=== PATIENT | female | born 1945 | race Caucasian/White ===

== ENCOUNTER 2017-01-26 15:54 | Emergency (ER) | payer OTHER ==
[~2017-01-26] VITALS: Ht 165.1 cm; Wt 68.0 kg
[~2017-01-26 15:54] MED LIST: ALPR0.25 PO; ESCI20TA PO; ONDA4TAB8 PO; PANT40TA2 PO; SOLI5TAB PO; TEMA15CA PO
--- NOTE | 2017-01-26 16:08 | NUR ---
Self present to ed due to right upper back pain x 5 days,08/07, non radiating. Patient denies injury. Ambulatory. vss. Pending md sullivan
[2017-01-26] MEDS ORDERED: KETOROLAC TROMETHAMINE 15 MG/ML VIAL ONE (16:26)
[2017-01-26] MEDS ORDERED: HYDROCODONE/APAP 5/325MG 1 EACH TABLET ONE (16:26)
[2017-01-26] MEDS ORDERED: HYDROCODONE/APAP 5/325MG 1 EACH TABLET PO ONE (16:30)
[2017-01-26] MEDS ORDERED: KETOROLAC TROMETHAMINE INJ 30 MG/ML VIAL IV ONE (16:30)
[2017-01-26 16:32] LABS: BASOPHILS % (AUTO) 0.2 % (0.0-2.0); EOSINOPHILS # (AUTO) 0.2 /CMM (0.0-0.7); HEMATOCRIT 34 % (33-45); HEMOGLOBIN 11.5 g/dL (11.5-14.8); LYMPHOCYTES # (AUTO) 1.7 /CMM (0.8-4.8); LYMPHOCYTES % (AUTO) 16.7 % (20.0-44.0); MEAN CORPUSCULAR HEMOGLOBIN 31 PG (26.0-33.0); MEAN CORPUSCULAR HGB CONC 34 g/dl (31.0-36.0); MEAN CORPUSCULAR VOLUME 91 fL (82-100); MONOCYTES # (AUTO) 0.5 /CMM (0.1-1.30); MONOCYTES % (AUTO) 5.4 % (2.0-12.0); NEUTROPHILS # (AUTO) 7.6 /CMM (1.8-8.9); NEUTROPHILS % (AUTO) 75.7 % (43.0-81.0); PLATELET COUNT (AUTO) 276 /CMM (150-450); RDW COEFFICIENT OF VARIATION 12.3 (11.5-15.0); RED BLOOD CELL COUNT(AUTO) 3.73 MIL/uL (4.0-5.2)
--- NOTE | 2017-01-26 16:39 | NUR ---
MEDICATED PATIENT FOR PAIN
[2017-01-26 16:42] LABS: CALCIUM, SERUM 9.3 mg/dL (8.5-10.1); CARBON DIOXIDE 28 mmol/L (21-32); CHLORIDE 104 mmol/L (98-107); CREATININE 1.7 mg/dL (0.6-1.3); GLUCOSE 141 mg/dL (74-106); POTASSIUM 3.4 mmol/L (3.5-5.1); SODIUM SERUM 141 mmol/L (136-145); UREA NITROGEN, BLOOD 40 mg/dL (7-18)
--- NOTE | 2017-01-26 16:42 | NUR ---
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
[2017-01-26 16:46] LABS: INR 0.92 (0.87-1.13); PROTHROMBIN TIME 9.6 SECS (9.5-12.7)
[2017-01-26 16:49] LABS: TROPONIN I < 0.017 ng/mL (0.00-0.056)
[2017-01-26] MEDS ORDERED: IV NS 0.9% 1,000 ML ONE (16:54)
[2017-01-26 16:55] LABS: B-TYPE NATRIURETIC PEPTIDE 440 PG/ML (0-125)
[2017-01-26] MEDS ORDERED: IV NS 0.9% 1,000 ML BAG IV ONE (17:00)
--- NOTE | 2017-01-26 19:07 | NUR ---
REPORT REC'D FROM UAGUST GREENBERG FOR DEVI.
--- NOTE | 2017-01-26 19:14 | NUR ---
Patient is resting comfortably in bed with eyes closed. Easily aroused. VSS
--- NOTE | 2017-01-26 19:25 | NUR ---
PT LEFT FOR VQ SCAN VIA WC.
[2017-01-26] MEDS ORDERED: ONDANSETRON HCL/PF 4 MG/2 ML VIAL ONE (20:31)
[2017-01-26] MEDS ORDERED: MORPHINE SULFATE INJ 4 MG/ML DISP.SYRIN ONE (20:31)
--- NOTE | 2017-01-26 20:57 | NUR ---
PAGED DR WHITNEY SUN
--- NOTE | 2017-01-26 20:59 | NUR ---
PT APPEARS TO BE RESTING COMFORTABLY. PT STATED THAT HER PAIN AND N/V IS MUCH BETTER. VSS.
[2017-01-26] MEDS ORDERED: MORPHINE SULFATE INJ 2 MG/ML DISP.SYRIN IV ONE (21:00)
[2017-01-26] MEDS ORDERED: ONDANSETRON HCL/PF 4 MG/2 ML VIAL IVP ONE (21:00)
--- NOTE | 2017-01-26 21:24 | NUR ---
IV removed. Catheter intact and site benign. Pressure and 4x4 applied to site. No bleeding noted.Patient discharged to home in stable condition. Written and verbal after care instructions given. Patient verbalizes understanding of instruction AND RX. PT AMBULATED OUT WITH A STEADY GAIT. PT'S VSS. PT'S IS DRIVING PT HOME. RESP EVEN AND UNLABORED. PAIN IS NOW 2/10
[2017-01-26 21:25] VITALS: BP 142/79
== END 2017-01-26 21:26 | disposition home or self-care (01) ==
LOC: ER 15:58
DX: M54.6 Pain in thoracic spine (principal); R79.1 Abnormal coagulation profile; Z88.8 Allergy status to other drugs, medicaments and biological substances
CPT/HCPCS: 36415; 71010-TC; 78582; 80048-TC; 83880; 84484-TC; 85025-TC; 85730-TC; A4606; A9540; A9567; J1885; J2270; J2405; J7030; Z7610

== ENCOUNTER 2021-07-11 11:31 | Emergency (ER) | payer OTHER ==
[~2021-07-11] VITALS: Ht 165.1 cm; Wt 60.8 kg
[~2021-07-11 11:31] MED LIST changes: -SOLI5TAB PO; +SOLI5TAB2 PO
[2021-07-11 11:46] VITALS: BP 120/68
--- NOTE | 2021-07-11 11:50 | NUR ---
SEEN AND EXAMINED BY .
--- NOTE | 2021-07-11 12:48 | NUR ---
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
[2021-07-11] MEDS ORDERED: IBUP-1953 PO (13:07)
[2021-07-11] MEDS ORDERED: CAPS1ADH5 TP (13:07)
[2021-07-11] MEDS ORDERED: KETOROLAC TROMETHAMINE 15 MG/ML VIAL ONE (13:32)
--- NOTE | 2021-07-11 13:38 | NUR ---
Patient discharged to home in stable condition. Written and verbal after care instructions given. Patient verbalizes understanding of instruction.
[2021-07-11] MEDS ORDERED: KETOROLAC TROMETHAMINE INJ 30 MG/ML VIAL IM ONE (14:00)
== END 2021-07-11 13:45 | disposition home or self-care (01) ==
LOC: ER 11:40
DX: M54.41 Lumbago with sciatica, right side (principal); I10 Essential (primary) hypertension; Z95.0 Presence of cardiac pacemaker; Z88.8 Allergy status to other drugs, medicaments and biological substances; Z79.899 Other long term (current) drug therapy
CPT/HCPCS: 72100; 73502; 96372; 99284; J1885

== ENCOUNTER 2022-02-26 10:36 | Emergency (ER) | payer OTHER ==
[~2022-02-26] VITALS: Ht 165.1 cm; Wt 59.4 kg
[~2022-02-26 10:36] MED LIST changes: +CAPS1ADH5 TP; +IBUP-1953 PO
--- NOTE | 2022-02-26 10:41 | NUR ---
TO ER BED 10, BIB FRIEND C/O CAT BITE ON THE LEFT LEG AND SCRATCHES ON THE R ARM.YESTERDAY AROUND 3 PM, C/O PAIN IN THE WOUND SITE, AAOX3, BREATHING EVEN AND NON LABORED, AWAITING MD ORDERS
--- NOTE | 2022-02-26 10:45 | NUR ---
SEEN AND EXAMINED BY DR QUARLES
[2022-02-26] MEDS ORDERED: BACI/NEOM/POLY B OINT PKT 1 UDPKT PACKET TP ONE (11:00)
[2022-02-26] MEDS ORDERED: TDAP [DIPH/PERTUSSIS/TET] 0.5 ML VIAL IM ONE ×2 (11:00→11:11)
[2022-02-26] MEDS ORDERED: BACI/NEOM/POLY B OINT PKT 1 UDPKT PACKET ONE (11:11)
--- NOTE | 2022-02-26 11:32 | NUR ---
[facility] [phone]
[2022-02-26] MEDS ORDERED: KETOROLAC TROMETHAMINE 15 MG/ML VIAL ONE (12:15)
[2022-02-26] MEDS ORDERED: ACETAMINOPHEN 325 MG TABLET ONE (12:15)
[2022-02-26] MEDS ORDERED: ACETAMINOPHEN 325 MG TABLET PO ONE (12:30)
[2022-02-26] MEDS ORDERED: KETOROLAC TROMETHAMINE INJ 30 MG/ML VIAL IM ONE (12:30)
[2022-02-26] MEDS ORDERED: IBUP-1955 PO ×2 (12:36→12:58)
[2022-02-26] MEDS ORDERED: AMOX-430 PO ×2 (12:36→12:58)
[2022-02-26 13:00] VITALS: BP 138/70
--- NOTE | 2022-02-26 13:01 | NUR ---
Wounds cleaned and dressed as ordered BY RIAN Dow. For Discharge- Patient discharged to home in stable condition. Written and verbal after care instructions given. Patient verbalizes understanding of instruction.
== END 2022-02-26 13:01 | disposition home or self-care (01) ==
LOC: ER 10:37
DX: S81.852A Open bite, left lower leg, initial encounter (principal); S80.812A Abrasion, left lower leg, initial encounter; S50.811A Abrasion of right forearm, initial encounter; I10 Essential (primary) hypertension; Z95.0 Presence of cardiac pacemaker; Z88.8 Allergy status to other drugs, medicaments and biological substances; Z79.899 Other long term (current) drug therapy; W55.01XA Bitten by cat, initial encounter; Y93.89 Activity, other specified; Y92.89 Other specified places as the place of occurrence of the external cause; Y99.8 Other external cause status
CPT/HCPCS: 73590; 90471; 90715; 96372; 99284; A6403; J1885